=== PATIENT | male | born 2000 | race Caucasian/White ===

== ENCOUNTER 2021-06-13 00:08 | Emergency (ER) | payer OTHER ==
[~2021-06-13] VITALS: Ht 193 cm; Wt 133.8 kg
[~2021-06-13 00:08] MED LIST: ALBU17AE26
[2021-06-13 00:22] VITALS: BP_SYST 160
--- NOTE | 2021-06-13 00:26 | NUR ---
Patient triaged and placed in waiting room. VS checked and patient appears in no acute distress at this time. Awaiting available bed, and MD notified of need for MSE.
--- NOTE | 2021-06-13 01:08 | NUR ---
Dr. Groves present in room at this time.
[2021-06-13] MEDS ORDERED: LevALBUTEROL HCL 1.25 MG/0.5 ML *CONC.* VIAL.NEB (XOPENEX CONC.) INH ONE ×4 (01:15→03:45)
--- NOTE | 2021-06-13 01:24 | NUR ---
RT present in room at this time.
[2021-06-13] MEDS ORDERED: MAGNESIUM SULFATE 1 GM in NS 100 ML IV ONE (02:00)
[2021-06-13] MEDS ORDERED: MAGNESIUM SULFATE 1 GM/2 ML VIAL ONE (02:03)
--- NOTE | 2021-06-13 03:18 | NUR ---
Nasal swab sent to lab. (covid&Influenza). Pt tolerated procedure well.
[2021-06-13 03:45] VITALS: BP_SYST 143
--- NOTE | 2021-06-13 03:58 | NUR ---
Patient given written and verbal discharge instructions and verbalizes understanding. ER MD discussed with patient the results and treatment provided.Patient in stable condition. ID arm band removed. IV catheter removed intact and dressing applied, no active bleeding.Patient educated on pain management and to follow up with PMD. Opportunity for questions provided and answered.
== END 2021-06-13 03:58 | disposition home or self-care (01) ==
LOC: SED 00:08
DX: J45.901 Unspecified asthma with (acute) exacerbation (principal); B34.9 Viral infection, unspecified; F41.9 Anxiety disorder, unspecified; R06.02 Shortness of breath; Z20.822 Contact with and (suspected) exposure to COVID-19
CPT/HCPCS: 36415; 71045; 87426; 87804 ×2; 94640; 96365; 99285; J3475; J7612